=== PATIENT | female | born 2000 | race Caucasian/White ===

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

== ENCOUNTER 2022-01-17 00:23 | Emergency (ER) | payer BC ==
[~2022-01-17] VITALS: Ht 172.7 cm; Wt 84.9 kg
[2022-01-17 00:34] VITALS: BP 124/63
[2022-01-17] MEDS ORDERED: AMOX-494 MT (00:56)
[2022-01-17] MEDS ORDERED: AMOXICILLIN 500 MG CAPSULE PO ONE (01:00)
== END 2022-01-17 01:26 | disposition home or self-care (01) ==
LOC: ER 00:23
DX: J02.9 Acute pharyngitis, unspecified (principal)
CPT/HCPCS: 81025; 99283

== ENCOUNTER 2022-01-19 12:47 | Emergency (ER) | payer BC ==
[~2022-01-19] VITALS: Ht 172.7 cm; Wt 69.0 kg
[~2022-01-19 12:47] MED LIST: AMOX-494 MT
[2022-01-19 12:50] VITALS: BP 123/71
[2022-01-19] MEDS ORDERED: DEXAMETHASONE 10 MG/ML VIAL IV ONE (13:15)
== END 2022-01-19 19:24 | disposition home or self-care (01) ==
LOC: ER 12:47
DX: J02.0 Streptococcal pharyngitis (principal)
CPT/HCPCS: 96374; 99283; J1100

== ENCOUNTER → 2022-02-17 | Outpatient (CLI) | payer BC | END | disposition home or self-care (01) | LOC: LAB 08:55 | PROVIDERS: ATTEND Pediatrics | DX: Z03.89 Encounter for observation for other suspected diseases and conditions ruled out (principal) | CPT/HCPCS: 82627; 83520; 84402; 84403 ==

== ENCOUNTER → 2022-09-12 | Outpatient (CLI) | payer BC ==
[2022-09-12 10:38] LABS: BASOPHILS % 0.5 % (0.0-2.0); EOSINOPHILS % 2.5 % (0.0-5.0); HEMATOCRIT. 37.4 % (36.0-48.0); HEMOGLOBIN. 12.6 g/dL (12.0-16.0); LYMPHOCYTES % 31.7 % (20.0-50.0); MEAN CORPUSCULAR HEMOGLOBIN 27.6 pg (28.0-32.0); MEAN CORPUSCULAR VOLUME 81.8 fL (81.0-99.0); MEAN PLATELET VOLUME 8.6 fl (7.4-10.4); MONOCYTES % 7.5 % (2.0-8.0); NEUTROPHILS % 57.8 % (40.0-76.0); PLATELET 231 x1000/uL (130-400); RED BLOOD CELL COUNT 4.57 mill/uL (4.2-5.4); RED CELL DISTRIBUTION WIDTH 14.8 % (11.6-14.6)
[2022-09-12 11:10] LABS: CHLORIDE 108 mEq/L (98-107)
[2022-09-12 11:27] LABS: HDL CHOLESTEROL 69 mg/dL (40-59); LDL CHOLESTEROL 120 mg/dL (5-100); T4 FREE 0.75 ng/dL (0.76-1.46); TOTAL IRON BINDING CAPACITY 437 ug/dL (250-450)
[2022-09-12 11:37] LABS: FOLIC ACID (FOLATE) SERUM 17.1 ng/mL (>5.38)
[2022-09-13 08:11] LABS: FOLICLE STIMULATING HORMONE 3.2 mIU/mL (.)
== END | disposition home or self-care (01) ==
LOC: LAB 09:54
PROVIDERS: ATTEND Family Medicine Adult Medicine
DX: R53.83 Other fatigue (principal); E55.9 Vitamin D deficiency, unspecified; D50.9 Iron deficiency anemia, unspecified
CPT/HCPCS: 36415; 80053; 80061; 82306; 82607; 82746; 83001; 83036; 83540; 83550; 84439; 84443; 84481; 85025; 85651

== ENCOUNTER → 2023-08-23 | Outpatient (CLI) | payer BC ==
[2023-08-23 09:59] LABS: BASOPHILS % 0.4 % (0.0-2.0); EOSINOPHILS % 2.1 % (0.0-5.0); HEMATOCRIT. 40.3 % (36.0-48.0); HEMOGLOBIN. 13.4 g/dL (12.0-16.0); LYMPHOCYTES % 39.3 % (20.0-50.0); MEAN CORPUSCULAR HEMOGLOBIN 28.7 pg (28.0-32.0); MEAN CORPUSCULAR HGB CONC 33.4 g/dL (31.0-37.0); MEAN CORPUSCULAR VOLUME 86.2 fL (81.0-99.0); MEAN PLATELET VOLUME 8.4 fl (7.4-10.4); MONOCYTES % 6.2 % (2.0-8.0); PLATELET 209 x1000/uL (130-400); RED BLOOD CELL COUNT 4.67 mill/uL (4.2-5.4); RED CELL DISTRIBUTION WIDTH 14.2 % (11.6-14.6)
[2023-08-23 10:12] LABS: CLARITY URINE CLEAR (CLEAR); COLOR URINE YELLOW (YELLOW); GLUCOSE URINE NEGATIVE (NEGATIVE); KETONES URINE NEGATIVE (NEGATIVE); LEUKOCYTE ESTERASE URINE NEGATIVE (NEGATIVE); NITRITE URINE NEGATIVE (NEGATIVE); OCCULT BLOOD URINE NEGATIVE (NEGATIVE); PROTEIN URINE NEGATIVE (NEGATIVE); SPECIFIC GRAVITY URINE 1.023 (1.005-1.030); UROBILINOGEN URINE 0.2 E.U./dL (0.2-1.0)
[2023-08-23 10:16] LABS: ALANINE AMINOTRANSFERASE 11 IU/L (10-49); ASPARTATE AMINOTRANSFERASE 23 IU/L (<34); CALCIUM 9.3 mg/dL (8.7-10.4); CARBON DIOXIDE 26 mEq/L (21-32); CHLORIDE 107 mEq/L (98-107); CHOLESTEROL 211 mg/dL (<200); CREATININE 0.9 mg/dL (0.6-1.0); GLUCOSE 79 mg/dL (70-105); IRON 134 ug/dL (50-170); POTASSIUM 3.8 mEq/L (3.5-5.1); SODIUM 137 mEq/L (136-145)
[2023-08-23 10:18] LABS: T4 FREE 1.05 ng/dL (0.89-1.76)
[2023-08-23 10:19] LABS: LDL CHOLESTEROL 134 mg/dL (5-100); TRIGLYCERIDE 85 mg/dL (0-150)
[2023-08-23 10:21] LABS: BILIRUBIN TOTAL 0.7 mg/dL (0.1-1.0); HDL CHOLESTEROL 63 mg/dL (>65)
[2023-08-23 10:23] LABS: UREA NITROGEN BLOOD 13 mg/dL (9-23)
[2023-08-23 10:25] LABS: PROTEIN TOTAL 7.2 g/dL (6.0-8.3); TOTAL IRON BINDING CAPACITY 407 ug/dl (250-425)
[2023-08-23 10:52] LABS: ERYTHROCYTE SEDIMENTATION RATE 6 mm/hr (0-20)
[2023-08-23 12:03] LABS: FERRITIN 19 ng/mL (10-291); FOLIC ACID (FOLATE) SERUM > 20.00 ng/mL (>5.38); VITAMIN B12 SERUM 451 pg/mL (211-911)
== END | disposition home or self-care (01) ==
LOC: LAB 09:32
PROVIDERS: ATTEND Family Medicine Adult Medicine
DX: Z00.00 Encounter for general adult medical examination without abnormal findings (principal); D50.9 Iron deficiency anemia, unspecified; E78.5 Hyperlipidemia, unspecified
CPT/HCPCS: 36415; 80053; 80061; 81003; 82306; 82607; 82728; 82746; 83036; 83540; 83550; 84439; 84443; 84481; 85025; 85651

== ENCOUNTER 2024-03-15 17:16 | Emergency (ER) | payer BC ==
[~2024-03-15] VITALS: Ht 172.7 cm; Wt 82.0 kg
[2024-03-15 17:24] VITALS: O2SAT 99
[2024-03-15] MEDS ORDERED: LIDOCAINE HCL/PF 1% 10 MG/ML 5ML VIAL INFIL ONE (18:30)
[2024-03-15] MEDS: IBUPROFEN 400MG TABLET PO ONE (18:43)
[2024-03-15 19:30] VITALS: BP 112/67; PULSE 88; RESP 18; TEMP 37.05852; O2SAT 98
== END 2024-03-15 19:31 | disposition home or self-care (01) ==
LOC: ER 17:16
DX: M79.603 Pain in arm, unspecified (principal); M67.431 Ganglion, right wrist
CPT/HCPCS: 81025; 73110; 20612; 99284; J3490; Z7610 ×2

== ENCOUNTER → 2024-05-28 | Outpatient (CLI) | payer BC ==
[2024-05-28 09:21] LABS: HEMOGLOBIN. 13.6 g/dL (12.0-16.0); MEAN CORPUSCULAR HEMOGLOBIN 28.9 pg (28.0-32.0); MEAN CORPUSCULAR HGB CONC 33.2 g/dL (31.0-37.0); MEAN CORPUSCULAR VOLUME 87.2 fL (81.0-99.0); MEAN PLATELET VOLUME 8.6 fl (7.4-10.4); PLATELET 188 x1000/uL (130-400); RED BLOOD CELL COUNT 4.71 mill/uL (4.2-5.4); RED CELL DISTRIBUTION WIDTH 13.4 % (11.6-14.6); WHITE BLOOD COUNT 5.6 x1000/uL (4.5-11.0)
[2024-05-28 09:35] LABS: CLARITY URINE CLOUDY (CLEAR); COLOR URINE YELLOW (YELLOW); GLUCOSE URINE NEGATIVE (NEGATIVE); KETONES URINE NEGATIVE (NEGATIVE); LEUKOCYTE ESTERASE URINE NEGATIVE (NEGATIVE); NITRITE URINE NEGATIVE (NEGATIVE); OCCULT BLOOD URINE NEGATIVE (NEGATIVE); PH URINE 6.5 (4.5-8.0); PROTEIN URINE NEGATIVE (NEGATIVE); SPECIFIC GRAVITY URINE 1.025 (1.005-1.030); UROBILINOGEN URINE 0.2 E.U./dL (0.2-1.0)
[2024-05-28 09:42] LABS: CHLORIDE 106 mEq/L (98-107); POTASSIUM 4.5 mEq/L (3.5-5.1); SODIUM 141 mEq/L (136-145)
[2024-05-28 09:43] LABS: CALCIUM 9.6 mg/dL (8.7-10.4); CARBON DIOXIDE 28 mEq/L (21-32); DIFFERENTIAL COMMENT 1
[2024-05-28 09:47] LABS: IRON 89 ug/dL (50-170)
[2024-05-28 09:48] LABS: CREATININE 0.8 mg/dL (0.6-1.0); GLUCOSE 95 mg/dL (70-105); TRIGLYCERIDE 87 mg/dL (0-150); UREA NITROGEN BLOOD 10 mg/dL (9-23)
[2024-05-28 09:49] LABS: LDL CHOLESTEROL 134 mg/dL (5-100)
[2024-05-28 09:50] LABS: ALANINE AMINOTRANSFERASE 11 IU/L (10-49); ALBUMIN 4.2 g/dL (3.2-4.8); ASPARTATE AMINOTRANSFERASE 19 IU/L (<34); BILIRUBIN TOTAL 0.4 mg/dL (0.1-1.0); CHOLESTEROL 202 mg/dL (<200); HDL CHOLESTEROL 56 mg/dL (>65); PROTEIN TOTAL 6.9 g/dL (6.0-8.3); TOTAL IRON BINDING CAPACITY 342 ug/dl (250-425)
[2024-05-28 09:51] LABS: MUCUS URINE 1+ /lpf (< = 2+); SQUAMOUS EPITHELIAL CELL URINE 3+ /lpf (RARE/1+)
[2024-05-28 09:52] LABS: BACTERIA URINE 3+; RBC URINE 0-2 /hpf (0-2)
[2024-05-28 09:52] LABS: T4 FREE 0.95 ng/dL (0.89-1.76)
[2024-05-28 11:22] LABS: ERYTHROCYTE SEDIMENTATION RATE 2 mm/hr (0-20)
[2024-05-28 11:23] LABS: FERRITIN 15 ng/mL (10-291); FOLIC ACID (FOLATE) SERUM 19.04 ng/mL (>5.38)
[2024-05-28 11:25] LABS: VITAMIN B12 SERUM 363 pg/mL (211-911)
[2024-05-28 18:55] LABS: PLATELET ESTIMATE NORMAL
== END | disposition home or self-care (01) ==
LOC: LAB 08:55
PROVIDERS: ATTEND Family Medicine Adult Medicine
DX: E78.5 Hyperlipidemia, unspecified (principal); D50.9 Iron deficiency anemia, unspecified; Z00.00 Encounter for general adult medical examination without abnormal findings
CPT/HCPCS: 36415; 80053; 80061; 81001; 81003; 82306; 82607; 82728; 82746; 83036; 83540; 83550; 84439; 84443; 84481; 85025; 85651

== ENCOUNTER → 2024-10-31 | Outpatient (CLI) | payer BC | END | disposition home or self-care (01) | LOC: US 14:50 | PROVIDERS: ATTEND Family Medicine Adult Medicine | DX: N83.201 Unspecified ovarian cyst, right side (principal); N94.6 Dysmenorrhea, unspecified | CPT/HCPCS: 76830; 76856 ==